=== PATIENT | female | born 1975 | race Caucasian/White ===

== ENCOUNTER 2023-07-13 16:35 | Emergency (ER) | payer OTHER ==
[~2023-07-13] VITALS: Ht 162.6 cm; Wt 73.0 kg
[2023-07-13 16:37] VITALS: TEMP 97.8; O2SAT 96
[2023-07-13] MEDS ORDERED: ONDANSETRON 4MG ODT PO STA (16:41)
[2023-07-13 17:16] LABS: HCG SCREEN NEGATIVE
[2023-07-13 17:21] LABS: BASOPHILS % 0.6 % (0.0-2.0); DIFFERENTIAL COMMENT 0; EOSINOPHILS % 0.3 % (0.0-5.0); HEMATOCRIT. 42.3 % (36.0-48.0); HEMOGLOBIN. 14.1 g/dL (12.0-16.0); MEAN CORPUSCULAR HEMOGLOBIN 33.6 pg (28.0-32.0); MEAN CORPUSCULAR HGB CONC 33.4 g/dL (31.0-37.0); MEAN CORPUSCULAR VOLUME 100.4 fL (81.0-99.0); MEAN PLATELET VOLUME 8.9 fl (7.4-10.4); MONOCYTES % 5.6 % (2.0-8.0); NEUTROPHILS % 58.5 % (40.0-76.0); PLATELET 178 x1000/uL (130-400); RED BLOOD CELL COUNT 4.21 mill/uL (4.2-5.4); RED CELL DISTRIBUTION WIDTH 14.4 % (11.6-14.6); WHITE BLOOD COUNT 6.8 x1000/uL (4.5-11.0)
[2023-07-13 17:24] LABS: CHLORIDE 104 mEq/L (98-107); INDEX HEMOLYSI 2 (1-3); INDEX ICTERIC 1 (1-4); INDEX LIPEMIC 1 (1-3); POTASSIUM 3.9 mEq/L (3.5-5.1); SODIUM 141 mEq/L (136-145)
[2023-07-13 17:35] LABS: ALANINE AMINOTRANSFERASE 53 IU/L (13-61); ALBUMIN 4.2 g/dL (3.4-5.0); ASPARTATE AMINOTRANSFERASE 63 IU/L (15-37); BILIRUBIN TOTAL 0.8 mg/dL (0.1-1.0); CALCIUM 8.1 mg/dL (8.5-10.1); CARBON DIOXIDE 21 mEq/L (21-32); CREATININE 0.5 mg/dL (0.6-1.3); ETHANOL BLOOD 386 mg/dL (<10); GLUCOSE 61 mg/dL (70-105); PROTEIN TOTAL 7.4 g/dL (6.0-8.3); UREA NITROGEN BLOOD 13 mg/dL (7-21)
[2023-07-13 18:31] VITALS: BP 115/70; PULSE 82; RESP 16
== END 2023-07-13 22:25 | disposition home or self-care (01) ==
LOC: ER 16:35
DX: F10.129 Alcohol abuse with intoxication, unspecified (principal); Y90.8 Blood alcohol level of 240 mg/100 ml or more
CPT/HCPCS: 80053; 81025; 80320; 84703; 85025; 36415; 99283; Q0162; G0480

== ENCOUNTER 2023-10-02 20:33 | Emergency (ER) | payer MEDICAID, OTHER ==
[~2023-10-02] VITALS: Ht 167.6 cm; Wt 69.0 kg
[2023-10-02 21:00] VITALS: O2SAT 100
[2023-10-02] MEDS ORDERED: SODIUM CHLORIDE 0.9% 1,000 ML IV ONE (22:00)
[2023-10-02 22:58] LABS: BASOPHILS % 0.5 % (0.0-2.0); DIFFERENTIAL COMMENT 0; HEMOGLOBIN. 13.2 g/dL (12.0-16.0); LYMPHOCYTES % 37.6 % (20.0-50.0); MEAN CORPUSCULAR HEMOGLOBIN 35.4 pg (28.0-32.0); MEAN CORPUSCULAR HGB CONC 34.8 g/dL (31.0-37.0); MEAN CORPUSCULAR VOLUME 101.7 fL (81.0-99.0); MEAN PLATELET VOLUME 8.6 fl (7.4-10.4); MONOCYTES % 9.2 % (2.0-8.0); NEUTROPHILS % 52.7 % (40.0-76.0); PLATELET 197 x1000/uL (130-400); RED BLOOD CELL COUNT 3.74 mill/uL (4.2-5.4); RED CELL DISTRIBUTION WIDTH 14.1 % (11.6-14.6); WHITE BLOOD COUNT 6.6 x1000/uL (4.5-11.0)
[2023-10-02 23:10] LABS: ALANINE AMINOTRANSFERASE 34 IU/L (10-49); ALBUMIN 4.3 g/dL (3.2-4.8); ASPARTATE AMINOTRANSFERASE 24 IU/L (<34); BILIRUBIN TOTAL 1.2 mg/dL (0.1-1.0); CALCIUM 8.8 mg/dL (8.7-10.4); CARBON DIOXIDE 25 mEq/L (21-32); CHLORIDE 106 mEq/L (98-107); CREATININE 0.6 mg/dL (0.6-1.0); GLUCOSE 129 mg/dL (70-105); POTASSIUM 3.3 mEq/L (3.5-5.1); PROTEIN TOTAL 7.3 g/dL (6.0-8.3); SODIUM 143 mEq/L (136-145); UREA NITROGEN BLOOD 9 mg/dL (9-23)
[2023-10-02 23:18] LABS: ETHANOL BLOOD < 10 mg/dL (<10)
[2023-10-03 00:59] LABS: TROPONIN I HIGH SENSITIVITY 7 ng/L (3.0-34)
[2023-10-03 08:39] VITALS: BP 96/59; PULSE 86; RESP 16; TEMP 97.2
== END 2023-10-03 11:38 | disposition home or self-care (01) ==
LOC: ER 21:04
DX: R41.82 Altered mental status, unspecified (principal)
CPT/HCPCS: 80053; 80320; 85025; 84484; 36415; 70450; 72125; 93005; 99284; 71045; J7030; G0480